=== PATIENT | female | born 1970 | race Caucasian/White ===

== ENCOUNTER 2023-08-29 11:00 | Outpatient (RCR) | payer MEDICARE, SELFPAY ==
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
--- NOTE | 2023-08-29 11:24 | HP.OTREVAL ---
Re-Evaluation Intro: ABEL CARMONA, It has been my pleasure to treat YASMINE CARD over the last 25 visits for left hand crush injury. Please see the progress note below for an update on the occupational therapy plan of care! Subjective Subjective: pt arrives states she had nerve conduction test July 04. 8 weeks ago sensation pt states no changes Objective Objective/Function: Sensation Thumb: left 2.83 left 3.22 a improvement from 3.61 Index: 2.83 improved from 3.22 august 04 a improvement from 4:08 Middle: 2.83 improved 3.22 a improvement from 4.17 Ring: left 2.83 improved 3.22 a improvement from august 04 from 4.08 at initial Little: left 2.83 left 3.22 improvement from august 04 pt demo a increase in sensation based on monofilament testing left head filter press tender strength 10# same from 08/05/23 right 30# left lateral pinch 6# right 14# left tripod pinch 6# increase from 4# right 10# pt continues to demo improvements in her sensation from august 04 pts strength has not changed from aug 05 2023. pt continues to have difficulty with use of left hand due to sensation of constant tingling and weakness of left head filter press tender and pinch. Plan Plan Plan: strengthening as needed use of ulnar nerve brace PROM to gain full joint ROM with DIP/PIP and MP edema mtg Goals Goals Patient Goals: Regain Mobility, Regain Strength, Decrease Pain, Decrease Swelling/Stiffness, Improve Fine Motor Skills, Use Hand/Wrist/Arm Normally Again, Sleep Better, Decrease Tingling/Numbness, Increase ROM, Be More Independent in ADLS and Decrease Sensitivity Goal:Daily scar massage when approriate: Yes Goal Progress: Progressing Goal:ROM equal to unaffected hand: Yes Goal Progress: Progressing Goal:Complex Human Resources Manager/Pinch strength at least 75% of unaffected hand: Yes Goal Progress: Progressing Goal:No pain with affected hand use: Yes Goal Progress: Progressing Goal:PIP Circumferences equal to unaffected hand: Yes Goal Progress: Progressing Goal:Full use of affected hand in daily activities including work: Yes Goal Progress: Progressing Goal:Improvement in sensation documented by [place]ua monofiliaments: Yes Goal Progress: Progressing Goal:Decrease scar hypersensitivity: Yes Anticipated Interventions Anticipated Interventions Anticipated Interventions: A/AAROM/PROM, Strengthening, Edema Control, Scar Care, Triggerpoint Release, Desensitization, Sensory Retraining, Wound Care, Modalities, Orthoses, Joint Protection/Energy Conservation, Ergonomic Education, Fine Motor Coord/[place], Sensory Stimulation, Visual/Perceptual Skills, ADL Training, Education re assistive Equipment, Education re Diagnosis and Home Program Other Interventions: nerve glides Re-Evaluation Ending Re-evaluation ending: Please do not hesitate to contact me at [phone] by phone or if you have questions or concerns regarding this new plan of care! Sincerely, Domi Dwyer, OTR/L, CHT
--- NOTE | 2023-11-16 13:38 | HP.OT.NRP ---
Patient Information Patient Information: YASMINE CARD was seen in my office for initial evaluation on 05/12/23. The following Plan of Care was established for this patient: POC Established Initial Frequency: 2-3x /Week Initial Duration: 4-6 Months Plan: strengthening as needed use of ulnar nerve brace PROM to gain full joint ROM with DIP/PIP and MP edema mtg Anticipated Interventions Anticipated Interventions: A/AAROM/PROM, Strengthening, Edema Control, Scar Care, Triggerpoint Release, Desensitization, Sensory Retraining, Wound Care, Modalities, Orthoses, Joint Protection/Energy Conservation, Ergonomic Education, Fine Motor Coord/[place], Sensory Stimulation, Visual/Perceptual Skills, ADL Training, Education re assistive Equipment, Education re Diagnosis and Home Program Other Interventions: khloe cosme Last Seen Last Seen: This patient was last seen in our office 08/29/23. Pertinent comments regarding their Occupational therapy will appear below: No further apts have been scheduled and due to time lapse in services pt is d/c. At this point I will be discontinuing this patient from occupational therapy. I would be happy to see this patient again in the future if found appropriate by the physician. Thank you! Domi Dwyer, OTR/L, CHT
== END 2023-08-29 19:00 | disposition home or self-care (01) ==
LOC: OT 11:00
PROVIDERS: PCP Internal Medicine
DX: S67.22XD Crushing injury of left hand, subsequent encounter (principal)
CPT/HCPCS: 97035; 97110; 97140; 97166; 97530; 97760

== ENCOUNTER 2024-05-08 10:00 | Outpatient (RCR) | payer MEDICARE, SELFPAY ==
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
--- NOTE | 2024-07-12 11:35 | HP.PT.NRP ---
Patient Information Patient Information: YASMINE CARD was seen in my office for initial evaluation on 03/12/24. The following Plan of Care was established for this patient: POC Established Initial Frequency: 2x /Week Initial Duration: 6 Weeks Anticipated Interventions Patient/Client Instruction: Educate patient on: Condition and Plan of Care For the Purpose of:: To decrease pain, To increase ROM, To improve ability to perform ADL's, To increase tolerance to activity/condition/position, To improve ability of physical actions for home/community/work/leisure, To improve health of tissue, To decrease soft tissue restriction, To increase flexibility/ROM and To improve tolerance to ADL's Therapeutic Exercise to Include: Strength training, Endurance training, Balance training, Body mechanics, Postural training, Flexibilty training and Dynamic Lumbar Stabilization For the Purpose of:: To decrease pain, To increase ROM, To improve muscle performance and motor function, To improve ability to perform ADL's, To increase tolerance to activity/condition/position, To improve ability of physical actions for home/community/work/leisure, To improve gait and locomotor functions, To decrease soft tissue restriction and To increase flexibility/ROM TENS: Yes IF ES: Yes Thermo therapy (hot pack): Yes Ultrasound (thermal/non thermal): Yes For the Purpose of:: To decrease pain, To increase ROM, To improve muscle performance and motor function, To improve ability to perform ADL's, To increase tolerance to activity/condition/position, To improve ability of physical actions for home/community/work/leisure, To improve health of tissue, To decrease soft tissue restriction, To increase flexibility/ROM and To improve tolerance to ADL's Last Seen Last Seen: This patient was last seen in our office . Pertinent comments regarding their Physical therapy will appear below: Patient seen for PT for LBP to HEP and gym program doing well thus is d/c At this point I will be discontinuing this patient from physical therapy. I would be happy to see this patient again in the future if found appropriate by the physician. Thank you! Alan Carvajal, PT, Cert MDT, OCS Balance/Gait/Functional tests Balance/Special Test Scores Oswestry Low Back Score: 30
== END 2024-05-08 19:00 | disposition home or self-care (01) ==
LOC: PT 10:00
PROVIDERS: PCP Internal Medicine
DX: M54.50 Low back pain, unspecified (principal)
CPT/HCPCS: 97110; 97162; 97530